=== PATIENT | male | born 1985 | race Caucasian/White ===

== ENCOUNTER 2020-04-02 11:27 | Emergency (ER) | payer OTHER, SELFPAY ==
[2020-04-02 11:37] VITALS: BP 152/87; PULSE 59; RESP 18; TEMP 36.9; O2SAT 100
--- NOTE | 2020-04-02 12:06 | ED.SKABFB ---
HPI - Skin/Abscess/Foreign Bdy General Chief complaint: Skin/Abscess/Foreign Body Stated complaint: left eye swollen/rash Time Seen by Provider: 04/02/20 11:51 Source: patient and RN notes reviewed Mode of arrival: ambulatory Limitations: no limitations History of Present Illness HPI narrative: Patient presents today complaining of swelling to the left upper and lower eyelids with a rash extending to the forehead and down the left cheek. He also reports faint rash to the left anterior elbow. Denies redness or irritation to the eye, vision changes, photophobia, drainage. Denies matting of the eyelashes. He has been taking Benadryl. complaint: rash Related Data Allergies Allergy/AdvReac Type Severity Reaction Status Date / Time No Known Allergies Allergy Verified 04/02/20 11:50 Review of Systems Review of Systems: Narrative: CONSTITUTIONAL: Denies body aches, fever, chills, or sweats. EYES: Denies visual changes, redness, or discharge. ENT: Denies rhinorrhea, congestion, sore throat, or otalgia. CARDIOVASCULAR: Denies chest pain, palpitations, or edema. RESPIRATORY: Denies cough or dyspnea. GASTROINTESTINAL: Denies abdominal pain, nausea, vomiting, or diarrhea. GENITOURINARY: Denies dysuria or hematuria. SKIN: Denies wounds.+ Mildly pruritic rash to forehead, cheek, left elbow, and swelling to the left eyelids MUSCULOSKELETAL: Denies back pain, joint pain, or myalgia. NEUROLOGIC: Denies headache, numbness, tingling, or weakness. PSYCH: Denies depression or anxiety. PMFSH Comments At time of signature, I have reviewed and agree with nursing past medical, surgical, social and family history unless otherwise noted. Please see nursing chart for further information. There is no relevant family history pertinent to the presenting complaint Exam Narrative: Exam Narrative: GENERAL: Well-appearing, well-nourished, and in no acute distress. HEAD: Normocephalic, atraumatic. EYES: EOMI. PERRL. No redness or drainage of the eye. Conjunctivae normal. Left upper and lower eyelids are moderately swollen. Erythematous papular rash to the left cheek extending to the protestant and across the forehead bilaterally and up into the hairline. Patch of similar rash to left antecubital fossa. No active drainage of the eye. Eyelashes are normal. No crusting. ENT: Mucous membranes pink and moist. Nares clear. No rhinorrhea. TMs normal bilaterally. Throat normal. Uvula midline. NECK: Normal AROM. Supple. No lymphadenopathy. CHEST: No respiratory distress. EXTREMITIES: Normal range of motion. No edema. SKIN: Warm, dry. Capillary refill normal. Normal skin turgor. NEURO: No focal deficits. Alert and oriented x3. Gait steady. PSYCH: Normal affect. No signs of depression or anxiety. Course Vital Signs Vital signs: Vital Signs Temperature 98.5 F 04/02/20 11:37 Pulse Rate 59 L 04/02/20 11:37 Respiratory Rate 18 04/02/20 11:37 Blood Pressure 152/87 H 04/02/20 11:37 Pulse Oximetry 100 04/02/20 11:37 Temperature 98.5 F 04/02/20 11:37 Pulse Rate 59 L 04/02/20 11:37 Respiratory Rate 18 04/02/20 11:37 Blood Pressure 152/87 H 04/02/20 11:37 Pulse Oximetry 100 04/02/20 11:37 Reviewed. Pt has been instructed to follow up with his PCP regarding his elevated blood pressure today. MDM - Skin/Abscess/Foreign Bdy Differential Diagnosis Differential diagnosis: Likely abscess of skin or subcutaneous tissue, urticaria, allergic reaction to drug, cellulitis, eczema, insect bites, impetigo and contact dermatitis Critical Care Time Critical Care Time Critical Care Time: No Discharge Plan Discharge Clinical Impression: Contact dermatitis Patient Disposition: Home, Self-Care Condition: Stable Instructions: Contact Dermatitis (DC) Additional Instructions: Your symptoms are likely due to something you have come into contact with your skin. Please take the prednisone as prescribed. Continue an antihistami
== END 2020-04-02 12:10 | disposition home or self-care (01) ==
PROVIDERS: Emergency Provider Nurse Practitioner; PCP Internal Medicine
DX: L25.9 Unspecified contact dermatitis, unspecified cause (principal)
CPT/HCPCS: 99213; G0463

== ENCOUNTER 2021-04-16 10:29 | Emergency (ER) | payer OTHER, SELFPAY ==
[2021-04-16 10:45] VITALS: BP 127/84; PULSE 72; RESP 18; TEMP 36.7; O2SAT 100
[2021-04-16 11:02] VITALS: BP 127/84; PULSE 72; RESP 18; TEMP 36.7; O2SAT 100
--- NOTE | 2021-04-16 11:03 | ED.SKABFB ---
HPI - Skin/Abscess/Foreign Bdy General Chief complaint: Skin/Abscess/Foreign Body Stated complaint: Rash Time Seen by Provider: 04/16/21 11:00 Source: patient and RN notes reviewed Mode of arrival: ambulatory Limitations: no limitations History of Present Illness HPI narrative: Jeremias is a 35-year-old male patient who ambulated into the [facility] today. Patient states he just returned from [place]. While he was there he developed some red, itchy areas to bilateral elbow area left knee and buttock. Patient states his slept in the same bed and has no rash. Patient denies any contact with seawater. Patient has been treating with Benadryl spray and Benadryl ointment. Patient states the itching has increased significantly. MD complaint: rash Onset (ago): day(s) Tetanus up to date: no Related Data Home Medications Medication Instructions Recorded Confirmed amlodipine 5 mg PO DAILY 04/16/21 04/16/21 losartan-hydrochlorothiazide 1 tablet PO DAILY 04/16/21 04/16/21 Allergies Allergy/AdvReac Type Severity Reaction Status Date / Time No Known Allergies Allergy Verified 04/16/21 10:37 Review of Systems Review of Systems: CONSTITUTIONAL: Denies body aches, fever, chills, or sweats. EYES: Denies visual changes, redness, or discharge. ENT: Denies rhinorrhea, congestion, sore throat, or otalgia. CARDIOVASCULAR: Denies chest pain, palpitations, or edema. RESPIRATORY: Denies cough or dyspnea. GASTROINTESTINAL: Denies abdominal pain, nausea, vomiting, or diarrhea. GENITOURINARY: Denies dysuria or hematuria. SKIN: + rash, + itching, denies wounds. MUSCULOSKELETAL: Denies back pain, joint pain, or myalgia. NEUROLOGIC: Denies headache, numbness, tingling, or weakness. PSYCH: Denies depression or anxiety. All systems reviewed & are unremarkable except as noted in HPI and below PMFSH Comments At time of signature, I have reviewed and agree with nursing past medical, surgical, social and family history unless otherwise noted. Please see nursing chart for further information. There is no relevant family history pertinent to the presenting complaint Exam Narrative: GENERAL: Well nourished, well developed, no acute distress. Well appearing, non-toxic. EYES: PERRL, EOMs normal, conjunctivae normal. ENT: Head normocephalic and atraumatic. Nose normal without drainage. TMs clear with normal light reflex. Neck supple. Full ROM of neck. Mucous membranes moist. RESP: No sign of respiratory distress. MUSC/SKEL: Good strength, good range of movement. Moves all extremities equally. NEURO: Alert. Good coordination. SKIN: Warm, dry, , normal cap refill. Skin turgor normal. scattered maculopapular rash left buttock, left knee, ad right chest. PSYCH: Affect and mood appropriate. Course Vital Signs Vital signs: Vital Signs Temperature 36.7 C 04/16/21 10:45 Pulse Rate 72 04/16/21 10:45 Respiratory Rate 18 04/16/21 10:45 Blood Pressure 127/84 04/16/21 10:45 Pulse Oximetry 100 04/16/21 10:45 Temperature 36.7 C 04/16/21 11:02 Pulse Rate 72 04/16/21 11:02 Respiratory Rate 18 04/16/21 11:02 Blood Pressure 127/84 04/16/21 11:02 Pulse Oximetry 100 04/16/21 11:02 Reviewed. Pt has been instructed to follow up with his PCP regarding his elevated blood pressure today. MDM - Skin/Abscess/Foreign Bdy MDM Narrative Medical decision making narrative: Patient has a maculopapular rash on the left knee left buttock and right upper chest. Patient was in [place] last 4 days. slept next to him in the same bed and does not have any rash. Patient denies getting into the ocean or pool. Patient was package instructions. Patient was instructed to use Calamine lotion. a Medrol Dosepak was prescribed. Patient was instructed to use Benadryl per package instructions. Wash area twice daily with soap and water. Follow up with PCP in 3-5 days for continued symptoms or worsening of symptoms. Monitor for signs o
== END 2021-04-16 11:10 | disposition home or self-care (01) ==
PROVIDERS: Emergency Provider Nurse Practitioner Family
DX: L24.9 Irritant contact dermatitis, unspecified cause (principal); E78.00 Pure hypercholesterolemia, unspecified; I10 Essential (primary) hypertension
CPT/HCPCS: 99213; G0463

== ENCOUNTER 2023-04-27 10:35 | Emergency (ER) | payer OTHER, SELFPAY ==
[2023-04-27 10:38] VITALS: BP 140/96; PULSE 100; RESP 20; TEMP 36.9; O2SAT 98
--- NOTE | 2023-04-27 11:11 | ED.ABDPAIN ---
HPI - Abdominal Pain General Chief Complaint: Abdominal Pain Stated Complaint: Abdominal Pain Time Seen by Provider: 04/27/23 11:11 Source: patient Mode of arrival: ambulatory Limitations: no limitations History of Present Illness HPI narrative: 37-year-old male with history of hypertension presents with complaint of several days of right upper and lower abdominal pain, nausea, diarrhea, chills, fatigue. Reports abdominal pain getting progressively worse. Reports feels very nauseated, so elevating and mouth but unable to vomit. Decreased appetite. All systems reviewed and negative except as noted above. Related Data Home Medications Medication Instructions Recorded Confirmed amlodipine 5 mg tablet 5 mg PO DAILY 04/16/21 04/27/23 losartan 100 1 tablet PO DAILY 04/16/21 04/27/23 mg-hydrochlorothiazide 12.5 mg tablet Allergies Allergy/AdvReac Type Severity Reaction Status Date / Time lisinopril Allergy Cough Verified 04/27/23 10:47 Review of Systems Review of Systems: CONSTITUTIONAL: Reports fever, chills, or sweats. EYES: Denies visual changes, redness, or discharge. ENT: Denies rhinorrhea, congestion, sore throat, or otalgia. CARDIOVASCULAR: Denies chest pain, palpitations, or edema. RESPIRATORY: Denies cough or dyspnea. GASTROINTESTINAL: Reports abdominal pain, nausea, diarrhea. Denies vomiting. GENITOURINARY: Denies dysuria or hematuria. SKIN: Denies rash or itching. MUSCULOSKELETAL: Denies back pain, joint pain, or myalgia. NEUROLOGIC: Denies headache, numbness, or weakness. PSYCHIATRIC: Denies anxiety or depression. All other systems reviewed are negative, except as documented in HPI. PMFSH Comments At time of signature, agree with nursing past medical, surgical, social and family history. There is no relevant family history pertinent to the presenting complaint. Exam Narrative: GENERAL: This is a well-nourished, well-developed patient, patient is pale, mild pain distress. HEAD: normocephalic, atraumatic. EYES: PERRL. Sclera clear/white. Vision is grossly intact. EARS: External ears normal NOSE: External nose normal NECK: Neck supple, non-tender without lymphadenopathy, masses or thyromegaly. CARDIOVASCULAR: Regular rate and rhythm without murmurs, gallops, or rubs. RESPIRATORY: Clear to auscultation. Breath sounds equal bilaterally. No wheezes, rales, or rhonchi. GASTROINTESTINAL: Abdomen soft, tenderness to right upper and lower quadrant., nondistended. Bowel sounds are active. No hepato-splenomegaly, or palpable masses. No guarding. SKIN: warm, Dry, intact with no suspicious lesions or rash, good texture and turgor. NEURO: awake, alert, and oriented to person, place and time. There were no obvious focal neurologic abnormalities. EXTREMITIES: No joint tenderness, effusion, or edema noted. Course Course Level of Care: [facility] Visit Vital Signs Vital signs: Vital Signs Temperature 36.9 C 04/27/23 10:38 Pulse Rate 100 04/27/23 10:38 Respiratory Rate 20 04/27/23 10:38 Blood Pressure 140/96 H 04/27/23 10:38 Pulse Oximetry 98 04/27/23 10:38 Oxygen Delivery Room Air 04/27/23 10:38 Temperature 36.9 C 04/27/23 10:38 Pulse Rate 100 04/27/23 10:38 Respiratory Rate 20 04/27/23 10:38 Blood Pressure 140/96 H 04/27/23 10:38 Pulse Oximetry 98 04/27/23 10:38 Oxygen Delivery Room Air 04/27/23 10:38 Reviewed Transfer Transfered to: [facility] Transportation: Other (Private car) Transfer rationale: Transferring to ER for failure rash in of abdominal pain with CT scan, labs to rule out appendicitis. Accepting physician: Dr. Rose MDM - Abdominal Pain MDM Narrative Medical decision making narrative: Transferring to ER to rule out appendicitis. Patient agrees plan of care. Patient is aware of diagnosis, understands and agrees to treatment plan. Anticipatory guidance given. Patient agrees to follow-up as directed and is
== END 2023-04-27 11:30 | disposition short-term general hospital (02) ==
PROVIDERS: Emergency Provider Nurse Practitioner Family; PCP Internal Medicine
DX: R10.31 Right lower quadrant pain (principal); Z79.899 Other long term (current) drug therapy
CPT/HCPCS: 99212; G0463